=== PATIENT | female | born 1940 | race Hispanic/Latino ===

== ENCOUNTER → 2018-02-10 | Outpatient (CLI) | payer OTHER, MEDICARE | END | disposition home or self-care (01) | LOC: RAH 12:56 | PROVIDERS: ATTEND Internal Medicine | DX: I73.9 Peripheral vascular disease, unspecified (principal); I70.90 Unspecified atherosclerosis | CPT/HCPCS: 93925 ==

== ENCOUNTER → 2018-03-24 | Outpatient (CLI) | payer OTHER, MEDICARE | END | disposition home or self-care (01) | LOC: RAH 11:38 | PROVIDERS: ATTEND Internal Medicine | DX: M47.892 Other spondylosis, cervical region (principal); M47.894 Other spondylosis, thoracic region; M48.02 Spinal stenosis, cervical region; M25.78 Osteophyte, vertebrae; R07.81 Pleurodynia; Z91.81 History of falling | CPT/HCPCS: 71100; 72040; 72072 ==

== ENCOUNTER 2018-04-25 10:26 | Emergency (ER) | payer OTHER, MEDICARE ==
[2018-04-25] MEDS ORDERED: KETOROLAC TROMETHAMINE 15MG/ML ONE (11:10)
== END 2018-04-25 12:51 | disposition home or self-care (01) ==
LOC: EDH 10:26
DX: M47.26 Other spondylosis with radiculopathy, lumbar region (principal); I10 Essential (primary) hypertension; E11.9 Type 2 diabetes mellitus without complications; M19.90 Unspecified osteoarthritis, unspecified site; E07.9 Disorder of thyroid, unspecified; G89.29 Other chronic pain; Z95.1 Presence of aortocoronary bypass graft; Z88.5 Allergy status to narcotic agent; Z91.041 Radiographic dye allergy status; Z88.8 Allergy status to other drugs, medicaments and biological substances
CPT/HCPCS: 72131; 96372; 99284; J1885

== ENCOUNTER 2018-09-29 20:09 | Emergency (ER) | payer OTHER, MEDICARE ==
[2018-09-29 21:10] LABS: BASOPHILS % (AUTO) 0.7 % (0.0-5.0); EOSINOPHILS % (AUTO) 3.3 % (0.0-8.0); HEMATOCRIT 36.8 % (36-48); LYMPHOCYTES % (AUTO) 25.2 % (21.0-51.0); MEAN CORPUSCULAR HEMOGLOBIN 30.2 pg (27.0-33.0); MEAN CORPUSCULAR HGB CONC 34.2 g/dL (32.0-36.0); MEAN CORPUSCULAR VOLUME 88.3 fL (79-99); MONOCYTES % (AUTO) 10.5 % (3.0-13.0); NEUTROPHILS % (AUTO) 60.3 % (40.0-77.0); NUCLEATED RED BLOOD CELLS 0.1 % (0.0-0.19); PLATELET COUNT (AUTO) 264 K/uL (130-400); RED BLOOD CELL COUNT(AUTO) 4.17 MIL/uL (4.00-5.50); RED CELL DISTRIBUTION WIDTH 12.7 % (11.0-15.5); WHITE BLOOD COUNT (AUTO) 8.2 K/uL (4.8-10.8)
[2018-09-29 21:23] LABS: POTASSIUM 3.4 mmol/L (3.5-5.1)
[2018-09-29 21:24] LABS: INR 0.91 (0.85-1.15); PARTIAL THROMBOPLASTIN TIME 27.2 SEC (26.3-35.5); PROTHROMBIN TIME 9.6 SEC (9.6-11.6)
[2018-09-29 21:28] LABS: ALBUMIN 3.7 g/dL (3.5-5.0); BILIRUBIN,TOTAL 0.3 mg/dL (0.2-1.0); TOTAL PROTEIN, SERUM 7.6 g/dL (6.0-8.3)
[2018-09-29] MEDS ORDERED: HYDROCODONE/ACETAMINOPHEN 5/325 MG TAB ONE (22:52)
[2018-09-29] MEDS ORDERED: POTASSIUM CHLORIDE 20 MEQ ERTAB PO ONE (22:52)
== END 2018-09-29 23:23 | disposition home or self-care (01) ==
LOC: EDH 20:09
DX: S13.9XXA Sprain of joints and ligaments of unspecified parts of neck, initial encounter (principal); S43.402A Unspecified sprain of left shoulder joint, initial encounter; S80.02XA Contusion of left knee, initial encounter; S80.01XA Contusion of right knee, initial encounter; S00.83XA Contusion of other part of head, initial encounter; I10 Essential (primary) hypertension; M81.0 Age-related osteoporosis without current pathological fracture; E11.9 Type 2 diabetes mellitus without complications; M19.90 Unspecified osteoarthritis, unspecified site; E07.9 Disorder of thyroid, unspecified; G89.29 Other chronic pain; M54.9 Dorsalgia, unspecified; Z91.041 Radiographic dye allergy status; Z88.8 Allergy status to other drugs, medicaments and biological substances; Z95.0 Presence of cardiac pacemaker; Z98.890 Other specified postprocedural states; W18.39XA Other fall on same level, initial encounter; Y93.89 Activity, other specified; Y92.89 Other specified places as the place of occurrence of the external cause; Y99.8 Other external cause status
CPT/HCPCS: 36415; 70450; 71045; 72125; 72170; 73030; 73060; 73130; 73562; 80053; 82550; 84484; 85025; 85610; 85730; 93005

== ENCOUNTER → 2020-08-07 | Outpatient (CLI) | payer OTHER, MEDICARE | END | disposition home or self-care (01) | LOC: RAH 13:59 | PROVIDERS: ATTEND Internal Medicine | DX: R51.9 Headache, unspecified (principal); G31.9 Degenerative disease of nervous system, unspecified | CPT/HCPCS: 70450 ==

== ENCOUNTER 2020-09-10 08:25 | Emergency (ER) | payer OTHER, MEDICARE ==
[2020-09-10 09:36] LABS: BASOPHILS % (AUTO) 0.2 % (0.0-5.0); EOSINOPHILS % (AUTO) 0.6 % (0.0-8.0); LYMPHOCYTES % (AUTO) 3.1 % (21.0-51.0); MEAN CORPUSCULAR HEMOGLOBIN 27.5 pg (27.0-33.0); MEAN CORPUSCULAR HGB CONC 32.4 g/dL (32.0-36.0); MEAN CORPUSCULAR VOLUME 84.8 fL (79-99); MONOCYTES % (AUTO) 3.5 % (3.0-13.0); NEUTROPHILS % (AUTO) 92.3 % (40.0-77.0); PLATELET COUNT (AUTO) 311 K/uL (130-400); RED BLOOD CELL COUNT(AUTO) 4.95 MIL/uL (4.00-5.50); RED CELL DISTRIBUTION WIDTH 13.3 % (11.0-15.5); WHITE BLOOD COUNT (AUTO) 15.6 K/uL (4.8-10.8)
[2020-09-10] MEDS ORDERED: MECLIZINE HCL 25 MG TABLET ONE (09:36)
[2020-09-10 09:45] LABS: INR 0.98 (0.85-1.15); PROTHROMBIN TIME 10.7 SEC (9.6-11.6)
[2020-09-10 09:46] LABS: PARTIAL THROMBOPLASTIN TIME 27.5 SEC (26.3-35.5)
[2020-09-10 09:48] LABS: ALBUMIN 3.6 g/dL (3.5-5.0); BILIRUBIN,TOTAL 0.5 mg/dL (0.2-1.0); CREATININE 0.9 mg/dL (0.5-1.5)
[2020-09-10 10:10] LABS: TOTAL PROTEIN, SERUM 8.7 g/dL (6.0-8.3)
[2020-09-10 13:23] LABS: APPEARANCE,URINE Clear (CLEAR); BILIRUBIN,URINE Negative (NEGATIVE); COLOR,URINE Yellow (YELLOW); GLUCOSE, URINE (UA) Negative (NEGATIVE); KETONES,URINE Trace mg/dL (NEGATIVE); LEUKOCYTE ESTERASE ,URINE Trace (NEGATIVE); NITRATE,URINE Negative (NEGATIVE); OCCULT BLOOD,URINE Negative (NEGATIVE); PROTEIN,URINE POS 1+ mg/dL (NEGATIVE)
[2020-09-10 13:31] LABS: BACTERIA,URINE Rare /HPF (None Seen); MUCUS,URINE Few LPF (None Seen); RBC,URINE 0-1 /HPF (0-1)
== END 2020-09-10 14:36 | disposition home or self-care (01) ==
LOC: EDH 08:25
DX: H81.4 Vertigo of central origin (principal); I10 Essential (primary) hypertension; E11.9 Type 2 diabetes mellitus without complications; M19.90 Unspecified osteoarthritis, unspecified site; M81.0 Age-related osteoporosis without current pathological fracture; G89.29 Other chronic pain; M54.9 Dorsalgia, unspecified; E07.9 Disorder of thyroid, unspecified; Z91.041 Radiographic dye allergy status; Z88.0 Allergy status to penicillin; Z95.0 Presence of cardiac pacemaker; Z98.890 Other specified postprocedural states
CPT/HCPCS: 36415; 70450; 72125; 80053; 81001; 82550; 84484; 85025; 85610; 85730; 93005

== ENCOUNTER 2022-06-20 12:25 | Inpatient (IN) | payer OTHER, MEDICARE ==
[~2022-06-20] VITALS: Ht 157.5 cm; Wt 71.1 kg
[~2022-06-20 12:25] MED LIST: AEC81 PO; CARV3.1262 PO; DULO20CA18 PO; FURO20TA6 PO; LEVO75TA10 PO; MECL-160 PO
[2022-06-20 13:54] LABS: EOSINOPHILS % (AUTO) 19.7 % (0.0-8.0); HEMATOCRIT 33.3 % (36-48); LYMPHOCYTES % (AUTO) 15.4 % (21.0-51.0); MEAN CORPUSCULAR HGB CONC 33.3 g/dL (32.0-36.0); MONOCYTES % (AUTO) 10.6 % (3.0-13.0); PLATELET COUNT (AUTO) 216 K/uL (130-400); RED BLOOD CELL COUNT(AUTO) 4.11 MIL/uL (4.00-5.50); RED CELL DISTRIBUTION WIDTH 15.7 % (11.0-15.5); WHITE BLOOD COUNT (AUTO) 8.6 K/uL (4.8-10.8)
[2022-06-20 14:06] LABS: ALBUMIN 2.1 g/dL (3.5-5.0); ASPARTATE AMINOTRANSFERASE 10 U/L (10-37); CARBON DIOXIDE 22 mmol/L (21-32); CREATININE 3.7 mg/dL (0.5-1.5); GLOMERULAR FILTR. RATE CALC 12 mL/min (>90); GLUCOSE,RANDOM 99 mg/dL (70-105); POTASSIUM 4.3 mmol/L (3.5-5.1); SODIUM SERUM 121 mmol/L (136-145); TOTAL PROTEIN, SERUM 8.4 g/dL (6.0-8.3); UREA NITROGEN, BLOOD 51 mg/dL (7-18)
[2022-06-20 14:07] LABS: ALANINE AMINOTRANSFERASE < 6 U/L (12-78); CHLORIDE 88 mmol/L (101-111)
[2022-06-20 14:19] LABS: APPEARANCE,URINE CLEAR (CLEAR); BILIRUBIN,URINE NEGATIVE (NEGATIVE); COLOR,URINE YELLOW (YELLOW); GLUCOSE, URINE (UA) NEGATIVE (NEGATIVE); KETONES,URINE NEGATIVE (NEGATIVE); LEUKOCYTE ESTERASE ,URINE NEGATIVE Leu/uL (NEGATIVE); NITRATE,URINE NEGATIVE (NEGATIVE); OCCULT BLOOD,URINE NEGATIVE (NEGATIVE); PROTEIN,URINE 50 mg/dL (NEGATIVE); UROBILINOGEN,URINE 0.2 mg/dL (0.2-1.0)
[2022-06-20 14:30] LABS: BACTERIA,URINE FEW /HPF (None Seen); HYALINE CASTS, URINE 26-50 /LPF (0-1 /LPF); MUCUS,URINE RARE LPF (None Seen); SQUAMOUS EPITHELIAL CELL,UR RARE /HPF (0-2)
[2022-06-20] MEDS: 0.9%NACL 1000ML 1,000 ML IV SCH (16:46)
[2022-06-20] MEDS ORDERED: ONDANSETRON 4MG INJ IV PRN (18:30)
[2022-06-20] MEDS ORDERED: ACETAMINOPHEN 325 MG TAB PO PRN ×2 (18:30)
[2022-06-20] MEDS ORDERED: SODIUM CHLORIDE 3% FOR INHALATION 4 ML/AMP VIAL.NEB IH ONE (19:31)
[2022-06-20] MEDS ORDERED: ZOSYN 3.375GM+NS 50ML 50 ML IVPB ONE (19:52)
[2022-06-20] MEDS: ZOSYN 3.375GM+NS 50ML 50 ML IVPB SCH (19:52)
[2022-06-20] MEDS: FAMOTIDINE 20MG VIAL IV SCH (20:08)
[2022-06-20 21:10] VITALS: BP 144/75
[2022-06-20] MEDS: HEPARIN 5,000 UNIT VIAL SQ SCH (21:28)
[2022-06-20] MEDS: ALBUTEROL 0.083% 2.5 MG/3 ML INH IH SCH (23:35)
[2022-06-20] MEDS: IPRATROPIUM 0.5 MG/2.5 ML INH IH SCH (23:35)
[2022-06-21 00:12] VITALS: BP 139/74
[2022-06-21] MEDS: 0.9%NACL 1000ML 1,000 ML IV SCH ×2 (01:30→23:26)
[2022-06-21] MEDS ORDERED: POTASSIUM CHLORIDE 10MEQ/100ML 100 ML IV PRN (02:00)
[2022-06-21] MEDS ORDERED: LIDOCAINE HCL-MPF 1% 2ML VIAL IV PRN (02:00)
[2022-06-21] MEDS ORDERED: POTASSIUM CHLORIDE 10% ELIXIR 20 MEQ/15 ML UDCUP PO PRN (02:00)
[2022-06-21 03:12] VITALS: BP 134/62
[2022-06-21 03:31] LABS: BASOPHILS % (AUTO) 0.7 % (0.0-5.0); EOSINOPHILS % (AUTO) 20.8 % (0.0-8.0); HEMATOCRIT 28.3 % (36-48); LYMPHOCYTES % (AUTO) 19.8 % (21.0-51.0); MEAN CORPUSCULAR HEMOGLOBIN 27.2 pg (27.0-33.0); MEAN CORPUSCULAR HGB CONC 32.9 g/dL (32.0-36.0); MEAN CORPUSCULAR VOLUME 82.7 fL (79-99); MONOCYTES % (AUTO) 12.1 % (3.0-13.0); NEUTROPHILS % (AUTO) 46.1 % (40.0-77.0); PLATELET COUNT (AUTO) 217 K/uL (130-400); RED BLOOD CELL COUNT(AUTO) 3.42 MIL/uL (4.00-5.50); RED CELL DISTRIBUTION WIDTH 15.8 % (11.0-15.5); WHITE BLOOD COUNT (AUTO) 8.2 K/uL (4.8-10.8)
[2022-06-21 03:39] LABS: CREATININE,URINE RANDOM 209 mg/dL (30-135); SODIUM,URINE RANDOM 14 mmol/l (40-220)
[2022-06-21 03:59] LABS: CREATININE 3.3 mg/dL (0.5-1.5); MAGNESIUM 1.6 mg/dL (1.80-2.40); PHOSPHORUS 4.6 mg/dL (2.5-4.9); POTASSIUM 4.1 mmol/L (3.5-5.1); THYROID STIMULATING HORMONE 4.26 uIU/mL (0.36-3.74)
[2022-06-21] MEDS: MAGNESIUM 2GM PREMIX 50ML 50 ML IV PRN (04:07)
[2022-06-21] MEDS: INSULIN HUMULIN R 100 UNIT/ML 3ML SQ SCH ×4 (05:53→21:00)
[2022-06-21] MEDS: ZOSYN 3.375GM+NS 50ML 50 ML IVPB SCH ×2 (06:03→18:09)
[2022-06-21] MEDS: IPRATROPIUM 0.5 MG/2.5 ML INH IH SCH ×4 (06:33→23:07)
[2022-06-21] MEDS: ALBUTEROL 0.083% 2.5 MG/3 ML INH IH SCH ×4 (06:33→23:07)
[2022-06-21 08:12] VITALS: BP 134/59
[2022-06-21] MEDS: GUAIFENESIN 600 MG TABLET.ER PO SCH ×2 (09:24→22:02)
[2022-06-21] MEDS: HEPARIN 5,000 UNIT VIAL SQ SCH ×2 (09:25→22:04)
[2022-06-21 12:00] VITALS: BP 141/69
[2022-06-21 15:40] LABS: CREATININE 2.7 mg/dL (0.5-1.5)
[2022-06-21 15:59] VITALS: BP 144/64
[2022-06-21 19:12] VITALS: BP 142/57
[2022-06-21] MEDS: FAMOTIDINE 20MG VIAL IV SCH (22:02)
[2022-06-22] VITALS (7 sets, daily range): BP systolic 131–156; BP diastolic 62–74
[2022-06-22] MEDS: GUAIFENESIN-DM 200/20 MG 10 ML PO PRN ×2 (00:06→20:40)
[2022-06-22 04:25] LABS: BASOPHILS % (AUTO) 1.3 % (0.0-5.0); EOSINOPHILS % (AUTO) 20.5 % (0.0-8.0); HEMATOCRIT 26.3 % (36-48); MEAN CORPUSCULAR HEMOGLOBIN 27.4 pg (27.0-33.0); MEAN CORPUSCULAR HGB CONC 31.9 g/dL (32.0-36.0); MEAN CORPUSCULAR VOLUME 85.7 fL (79-99); MONOCYTES % (AUTO) 14.3 % (3.0-13.0); NEUTROPHILS % (AUTO) 40.6 % (40.0-77.0); PLATELET COUNT (AUTO) 197 K/uL (130-400); RED BLOOD CELL COUNT(AUTO) 3.07 MIL/uL (4.00-5.50); RED CELL DISTRIBUTION WIDTH 16.1 % (11.0-15.5); WHITE BLOOD COUNT (AUTO) 6.2 K/uL (4.8-10.8)
[2022-06-22 04:49] LABS: CREATININE 2.1 mg/dL (0.5-1.5); MAGNESIUM 1.9 mg/dL (1.80-2.40); POTASSIUM 3.7 mmol/L (3.5-5.1)
[2022-06-22 05:14] LABS: % IRON SATURATION 38.1 % (22-44)
[2022-06-22] MEDS: INSULIN HUMULIN R 100 UNIT/ML 3ML SQ SCH ×4 (06:12→20:20)
[2022-06-22] MEDS: ZOSYN 3.375GM+NS 50ML 50 ML IVPB SCH ×2 (06:31→17:02)
[2022-06-22] MEDS: KCL 20 MEQ ERTAB PO PRN (06:32)
[2022-06-22] MEDS: IPRATROPIUM 0.5 MG/2.5 ML INH IH SCH ×4 (07:04→23:06)
[2022-06-22] MEDS: ALBUTEROL 0.083% 2.5 MG/3 ML INH IH SCH ×4 (07:04→23:06)
[2022-06-22] MEDS: 0.9%NACL 1000ML 1,000 ML IV SCH ×2 (08:06→21:37)
[2022-06-22] MEDS: HEPARIN 5,000 UNIT VIAL SQ SCH ×2 (08:06→20:42)
[2022-06-22] MEDS: GUAIFENESIN 600 MG TABLET.ER PO SCH ×2 (08:06→20:39)
[2022-06-22] MEDS: DULOXETINE HCL 20 MG PO SCH (10:35)
[2022-06-22] MEDS: CARVEDILOL 3.125 MG TABLET PO SCH ×2 (11:42→20:40)
[2022-06-22] MEDS: ASPIRIN 81 MG EC TAB PO SCH (11:42)
[2022-06-22 11:45] LABS: ABG BASE EXCESS -0.6 mmol/L (-2.0-3.0); ABG HCO3 22.5 mmol/L (21.0-28.0); ABG PCO2 33 mmHg (32-45)
[2022-06-22] MEDS: FAMOTIDINE 20MG VIAL IV SCH (20:39)
[2022-06-22] MEDS ORDERED: IRON SUCROSE COMPLEX 300 MG in 0.9% NACL 250ML 250 ML IV SCH (21:00)
[2022-06-23] MEDS: FUROSEMIDE 20MG VIAL IV SCH ×2 (00:14→12:07)
[2022-06-23 02:39] LABS: HEMATOCRIT 25.2 % (36-48); MEAN CORPUSCULAR HEMOGLOBIN 26.5 pg (27.0-33.0); MEAN CORPUSCULAR HGB CONC 32.5 g/dL (32.0-36.0); MEAN CORPUSCULAR VOLUME 81.6 fL (79-99); RED BLOOD CELL COUNT(AUTO) 3.09 MIL/uL (4.00-5.50); RED CELL DISTRIBUTION WIDTH 15.8 % (11.0-15.5); WHITE BLOOD COUNT (AUTO) 6.4 K/uL (4.8-10.8)
[2022-06-23 03:01] LABS: ALBUMIN 1.8 g/dL (3.5-5.0); ASPARTATE AMINOTRANSFERASE 17 U/L (10-37); CARBON DIOXIDE 23 mmol/L (21-32); CHLORIDE 96 mmol/L (101-111); CREATININE 1.4 mg/dL (0.5-1.5); GLOMERULAR FILTR. RATE CALC 38 mL/min (>90); GLUCOSE,RANDOM 85 mg/dL (70-105); POTASSIUM 3.4 mmol/L (3.5-5.1); SODIUM SERUM 127 mmol/L (136-145); TOTAL PROTEIN, SERUM 7.4 g/dL (6.0-8.3); UREA NITROGEN, BLOOD 28 mg/dL (7-18)
[2022-06-23 03:11] LABS: ALANINE AMINOTRANSFERASE < 6 U/L (12-78)
[2022-06-23 03:16] VITALS: BP 156/70
[2022-06-23] MEDS: INSULIN HUMULIN R 100 UNIT/ML 3ML SQ SCH ×4 (03:44→21:00)
[2022-06-23] MEDS: ZOSYN 3.375GM+NS 50ML 50 ML IVPB SCH ×2 (06:35→17:54)
[2022-06-23] MEDS: MAGNESIUM 2GM PREMIX 50ML 50 ML IV PRN (06:36)
[2022-06-23] MEDS: KCL 20 MEQ ERTAB PO PRN ×2 (06:36→12:07)
[2022-06-23] MEDS: LEVOTHYROXINE 75 MCG TABLET PO SCH (06:36)
[2022-06-23] MEDS: ALBUTEROL 0.083% 2.5 MG/3 ML INH IH SCH ×4 (07:04→23:35)
[2022-06-23] MEDS: IPRATROPIUM 0.5 MG/2.5 ML INH IH SCH ×4 (07:04→23:35)
[2022-06-23 08:00] VITALS: BP 154/83
[2022-06-23] MEDS: DULOXETINE HCL 20 MG PO SCH (09:00)
[2022-06-23] MEDS: CARVEDILOL 3.125 MG TABLET PO SCH ×2 (09:16→21:32)
[2022-06-23] MEDS: GUAIFENESIN 600 MG TABLET.ER PO SCH ×2 (09:16→21:32)
[2022-06-23] MEDS: ASPIRIN 81 MG EC TAB PO SCH (09:16)
[2022-06-23] MEDS: HEPARIN 5,000 UNIT VIAL SQ SCH ×2 (09:24→21:34)
[2022-06-23 12:00] VITALS: BP 140/63
[2022-06-23 16:00] VITALS: BP 147/64
[2022-06-23 20:06] VITALS: BP 131/75
[2022-06-23] MEDS: FAMOTIDINE 20MG VIAL IV SCH (21:33)
[2022-06-24 00:24] VITALS: BP 142/64
[2022-06-24] MEDS: FUROSEMIDE 20MG VIAL IV SCH ×3 (00:54→21:00)
[2022-06-24 04:20] LABS: BASOPHILS % (AUTO) 0.8 % (0.0-5.0); EOSINOPHILS % (AUTO) 25.8 % (0.0-8.0); HEMATOCRIT 24.8 % (36-48); LYMPHOCYTES % (AUTO) 25.3 % (21.0-51.0); MEAN CORPUSCULAR HGB CONC 33.9 g/dL (32.0-36.0); MEAN CORPUSCULAR VOLUME 79.7 fL (79-99); NEUTROPHILS % (AUTO) 34.5 % (40.0-77.0); PLATELET COUNT (AUTO) 237 K/uL (130-400); RED BLOOD CELL COUNT(AUTO) 3.11 MIL/uL (4.00-5.50); RED CELL DISTRIBUTION WIDTH 15.9 % (11.0-15.5); WHITE BLOOD COUNT (AUTO) 8.6 K/uL (4.8-10.8)
[2022-06-24 04:40] VITALS: BP 144/61
[2022-06-24 04:45] LABS: ALBUMIN 1.8 g/dL (3.5-5.0); CREATININE 1.3 mg/dL (0.5-1.5); MAGNESIUM 1.5 mg/dL (1.80-2.40); POTASSIUM 3.4 mmol/L (3.5-5.1); TOTAL PROTEIN, SERUM 7.7 g/dL (6.0-8.3)
[2022-06-24] MEDS: INSULIN HUMULIN R 100 UNIT/ML 3ML SQ SCH ×4 (05:49→21:00)
[2022-06-24] MEDS: ZOSYN 3.375GM+NS 50ML 50 ML IVPB SCH ×2 (06:03→18:03)
[2022-06-24] MEDS: LEVOTHYROXINE 75 MCG TABLET PO SCH (06:04)
[2022-06-24] MEDS: MAGNESIUM 2GM PREMIX 50ML 50 ML IV PRN (06:25)
[2022-06-24] MEDS: KCL 20 MEQ ERTAB PO PRN ×2 (06:30→11:27)
[2022-06-24] MEDS: ALBUTEROL 0.083% 2.5 MG/3 ML INH IH SCH ×4 (06:36→23:37)
[2022-06-24] MEDS: IPRATROPIUM 0.5 MG/2.5 ML INH IH SCH ×4 (06:36→23:36)
[2022-06-24 07:40] VITALS: BP 140/55
[2022-06-24] MEDS: GUAIFENESIN 600 MG TABLET.ER PO SCH ×2 (08:36→22:38)
[2022-06-24] MEDS: CARVEDILOL 3.125 MG TABLET PO SCH ×2 (08:37→22:40)
[2022-06-24] MEDS: ASPIRIN 81 MG EC TAB PO SCH (08:37)
[2022-06-24] MEDS: HEPARIN 5,000 UNIT VIAL SQ SCH ×2 (08:43→22:36)
[2022-06-24] MEDS: DULOXETINE HCL 20 MG PO SCH (09:00)
[2022-06-24] MEDS ORDERED: MEMANTINE HCL 5 MG TABLET PO SCH ×2 (09:00)
[2022-06-24 12:02] VITALS: BP 126/76
[2022-06-24] MEDS: FLUOXETINE HCL 10 MG CAPSULE PO SCH ×3 (12:16→21:00)
[2022-06-24] MEDS ORDERED: FUROSEMIDE 20 MG TABLET PO SCH (12:30)
[2022-06-24] MEDS ORDERED: MEMA10TA11 PO (12:38)
[2022-06-24 16:26] VITALS: BP 148/70
[2022-06-24 19:18] VITALS: BP 148/77
[2022-06-24] MEDS ORDERED: FAMOTIDINE 20MG TAB PO SCH (21:00)
[2022-06-25 00:18] VITALS: BP 126/72
[2022-06-25 03:18] VITALS: BP 134/56
[2022-06-25 04:01] LABS: HEMATOCRIT 26.5 % (36-48); MEAN CORPUSCULAR HEMOGLOBIN 26.6 pg (27.0-33.0); MEAN CORPUSCULAR HGB CONC 32.5 g/dL (32.0-36.0); RED BLOOD CELL COUNT(AUTO) 3.23 MIL/uL (4.00-5.50); RED CELL DISTRIBUTION WIDTH 15.8 % (11.0-15.5); WHITE BLOOD COUNT (AUTO) 8.8 K/uL (4.8-10.8)
[2022-06-25 04:13] LABS: ALBUMIN 1.9 g/dL (3.5-5.0); ASPARTATE AMINOTRANSFERASE 19 U/L (10-37); CARBON DIOXIDE 28 mmol/L (21-32); CHLORIDE 95 mmol/L (101-111); CREATININE 1.2 mg/dL (0.5-1.5); GLOMERULAR FILTR. RATE CALC 45 mL/min (>90); GLUCOSE,RANDOM 91 mg/dL (70-105); POTASSIUM 3.7 mmol/L (3.5-5.1); SODIUM SERUM 127 mmol/L (136-145); TOTAL PROTEIN, SERUM 7.8 g/dL (6.0-8.3); UREA NITROGEN, BLOOD 15 mg/dL (7-18)
[2022-06-25 04:14] LABS: ALANINE AMINOTRANSFERASE < 6 U/L (12-78)
[2022-06-25] MEDS: ALBUTEROL 0.083% 2.5 MG/3 ML INH IH SCH ×3 (06:28→19:00)
[2022-06-25] MEDS: IPRATROPIUM 0.5 MG/2.5 ML INH IH SCH ×3 (06:28→18:59)
[2022-06-25] MEDS: INSULIN HUMULIN R 100 UNIT/ML 3ML SQ SCH ×3 (07:30→15:47)
[2022-06-25] MEDS: LEVOTHYROXINE 75 MCG TABLET PO SCH (07:40)
[2022-06-25 07:59] VITALS: BP 138/78
[2022-06-25] MEDS: ASPIRIN 81 MG EC TAB PO SCH (08:43)
[2022-06-25] MEDS: FUROSEMIDE 20MG VIAL IV SCH (08:43)
[2022-06-25] MEDS: DULOXETINE HCL 20 MG PO SCH (08:44)
[2022-06-25] MEDS: GUAIFENESIN 600 MG TABLET.ER PO SCH (08:44)
[2022-06-25] MEDS: CARVEDILOL 3.125 MG TABLET PO SCH (08:44)
[2022-06-25] MEDS: MAGNESIUM 2GM PREMIX 50ML 50 ML IV PRN ×2 (08:48→13:59)
[2022-06-25] MEDS: KCL 20 MEQ ERTAB PO PRN ×2 (08:54→13:58)
[2022-06-25] MEDS ORDERED: FLUOXETINE HCL 10 MG CAPSULE PO SCH ×2 (09:00→14:00)
[2022-06-25] MEDS ORDERED: ZOSYN 3.375GM+NS 50ML 50 ML IVPB SCH (09:00)
[2022-06-25] MEDS: HEPARIN 5,000 UNIT VIAL SQ SCH (09:33)
[2022-06-25 11:19] VITALS: BP 140/69
[2022-06-25 15:50] VITALS: BP 117/59
== END 2022-06-25 20:02 | DRG 70 ==
LOC: EDH 12:25 → EDHIP 18:17 → 2DH 21:00
PROVIDERS: ADMIT Internal Medicine; ATTEND Internal Medicine
DX: G93.41 Metabolic encephalopathy (principal); I50.23 Acute on chronic systolic (congestive) heart failure; I13.0 Hypertensive heart and chronic kidney disease with heart failure and stage 1 through stage 4 chronic kidney disease, or unspecified chronic kidney disease; N17.9 Acute kidney failure, unspecified; E87.1 Hypo-osmolality and hyponatremia; F02.82 Dementia in other diseases classified elsewhere, unspecified severity, with psychotic disturbance; J98.11 Atelectasis; I42.9 Cardiomyopathy, unspecified; Z20.822 Contact with and (suspected) exposure to COVID-19; K76.0 Fatty (change of) liver, not elsewhere classified; R19.00 Intra-abdominal and pelvic swelling, mass and lump, unspecified site; D64.9 Anemia, unspecified; E03.9 Hypothyroidism, unspecified; E11.22 Type 2 diabetes mellitus with diabetic chronic kidney disease; E11.40 Type 2 diabetes mellitus with diabetic neuropathy, unspecified; E78.00 Pure hypercholesterolemia, unspecified; G31.83 Neurocognitive disorder with Lewy bodies; I25.10 Atherosclerotic heart disease of native coronary artery without angina pectoris; K57.90 Diverticulosis of intestine, part unspecified, without perforation or abscess without bleeding; M81.0 Age-related osteoporosis without current pathological fracture; N18.9 Chronic kidney disease, unspecified; R62.7 Adult failure to thrive; Z79.82 Long term (current) use of aspirin; Z88.8 Allergy status to other drugs, medicaments and biological substances; Z88.1 Allergy status to other antibiotic agents; Z91.041 Radiographic dye allergy status; Z79.899 Other long term (current) drug therapy; Z90.710 Acquired absence of both cervix and uterus; Z95.0 Presence of cardiac pacemaker
CPT/HCPCS: 36415; 36600; 70450; 71045; 74176; 80048; 80053; 81001; 82570; 82607; 82803; 82948; 83036; 83540; 83550; 83605; 83735; 83880; 83930; 83935; 84100; 84145; 84300; 84439; 84443; 84481; 85025; 85027; 87040; 87071; 87088; 87205; 87635; 87804; 92610; 93306; 94640; 94664; G0378; J1644; J1756; J1940; J2543; J3475; J3490; J7030; J7050

== ENCOUNTER → 2022-08-26 | Outpatient (CLI) | payer OTHER, MEDICARE ==
[~2022-08-26] MED LIST changes: +AMOX1TAB16 PO; +BENZ-226 PO; -FURO20TA6 PO; +FURO40TA7 PO; +MEMA5TAB PO; +OMEP40CA21 PO; +ONDA4TAB10 PO
== END | disposition home or self-care (01) ==
LOC: RAH 11:51
PROVIDERS: ATTEND Internal Medicine
DX: J90 Pleural effusion, not elsewhere classified (principal); R05.9 Cough, unspecified
CPT/HCPCS: 71046